=== PATIENT | male | born 1990 ===

== ENCOUNTER 2022-12-15 20:00 | Outpatient (CLI) | payer MEDICAID, SELFPAY | END 2022-12-15 20:01 | disposition home or self-care (01) | LOC: SLEEP 12-16 05:02 | PROVIDERS: Visit Provider Nurse Practitioner Family | DX: G47.10 Hypersomnia, unspecified (principal); R06.83 Snoring; R53.83 Other fatigue | CPT/HCPCS: 95810 ==